=== PATIENT | male | born 1950 | race Hispanic/Latino ===

== ENCOUNTER 2018-05-12 06:30 | Day surgery (SDC) | payer MEDICARE ==
--- NOTE | 2018-05-12 08:46 | CP.SDSHP ---
Same Day Surgery H & P - History Proposed Procedure: egd Pre-Op Diagnosis: severe heartburn. laryngeal reflux symptoms in spite of Rx - Previous Medical/Surgical History Cardiac: Other (hypercholesterolemia) Misc: Other (DJD, Depression, Colon polyps, Melanoma) Pain: 2.Mild Pain - Allergies Allergies: Allergies No Known Allergies Allergy (Verified 05/12/18 07:00) - Physical Exam Vital Signs: Vital Signs 05/12/18 06:50 Temperature 97 F L Pulse Rate 77 Respiratory 19 Rate Blood Pressure 107/58 L O2 Sat by Pulse 97 Oximetry Mental Status: Alert & Oriented x3 Neuro: WNL Heart: WNL Lungs: WNL GI: WNL - Impression Impression: heartburn. layngeal reflux non-responsive to Rx Pt. Evaluated Today:Candidate for Anesthesia & Procedure: Yes - Date & Time Date: 05/12/18 Time: 08:46 Short Stay Discharge - Short Stay Discharge Admitting Diagnosis/Reason for Visit: EPIGASTRIC PAIN / F/H MALIGNANT NEOPLASM Disposition: HOME/ ROUTINE
[2018-05-12] MEDS ORDERED: Pantoprazole 40 mg EC Tab PO STA (08:47)
[2018-05-12] MEDS ORDERED: Propofol 10 mg/ml Inj (20 ML) ONE (09:00)
[2018-05-12 09:44] VITALS: TEMP 97.8
[2018-05-12 10:18] VITALS: O2SAT 97
[2018-05-12 10:32] VITALS: BP 132/71; PULSE 65; RESP 18
== END 2018-05-12 10:29 | disposition home or self-care (01) ==
LOC: C.ENDO 06:30
PROVIDERS: ATTEND Internal Medicine Gastroenterology
DX: K21.0 Gastro-esophageal reflux disease with esophagitis (principal); K29.50 Unspecified chronic gastritis without bleeding; K31.89 Other diseases of stomach and duodenum; Z80.0 Family history of malignant neoplasm of digestive organs; Z86.010 Personal history of colon polyps; E78.00 Pure hypercholesterolemia, unspecified; F32.9 Major depressive disorder, single episode, unspecified; Z85.820 Personal history of malignant melanoma of skin
CPT/HCPCS: 43239; 88305; J2001; J2704